=== PATIENT | female | born 1960 | race Caucasian/White ===

== ENCOUNTER 2022-04-21 09:12 | Outpatient (CLI) | payer MEDICAID, SELFPAY ==
[2022-04-21 12:44] LABS: Cholesterol* 266 mg/dL (90-199); HDL Cholesterol* 81 mg/dL (>=50); LDL Cholesterol Calculated 168 mg/dL (<100); Triglycerides* 87 mg/dL (40-149)
== END 2022-04-21 09:13 | disposition home or self-care (01) ==
PROVIDERS: PCP Family Medicine; Visit Provider Family Medicine
DX: E78.00 Pure hypercholesterolemia, unspecified (principal)
CPT/HCPCS: 80061

== ENCOUNTER 2022-07-16 08:40 | Outpatient (CLI) | payer MEDICAID, SELFPAY | END 2022-07-16 08:41 | disposition home or self-care (01) | LOC: OP CLINIC 08:42 | PROVIDERS: PCP Family Medicine; Visit Provider Internal Medicine | DX: Z12.11 Encounter for screening for malignant neoplasm of colon (principal); K57.30 Diverticulosis of large intestine without perforation or abscess without bleeding | CPT/HCPCS: 45378; J2250; J3010 ==

== ENCOUNTER 2022-09-17 10:02 | Outpatient (CLI) | payer MEDICAID, SELFPAY | END 2022-09-17 10:03 | disposition home or self-care (01) | PROVIDERS: PCP Family Medicine; Visit Provider Family Medicine | DX: Z00.00 Encounter for general adult medical examination without abnormal findings (principal); R53.83 Other fatigue; E78.00 Pure hypercholesterolemia, unspecified; D64.9 Anemia, unspecified | CPT/HCPCS: 80053; 80061; 82728 ==

== ENCOUNTER 2022-12-29 07:58 | Outpatient (CLI) | payer MEDICAID, SELFPAY | END 2022-12-29 07:59 | disposition home or self-care (01) | LOC: NFLDREF 12-30 00:19 | PROVIDERS: PCP Family Medicine; Referring Provider Family Medicine; Visit Provider Family Medicine | DX: D64.9 Anemia, unspecified (principal) | CPT/HCPCS: 82728 ==

== ENCOUNTER 2023-10-21 15:55 | Outpatient (CLI) | payer MEDICAID, SELFPAY | END 2023-10-21 15:56 | disposition home or self-care (01) | PROVIDERS: PCP Family Medicine; Visit Provider Family Medicine | DX: D64.9 Anemia, unspecified (principal); E78.00 Pure hypercholesterolemia, unspecified; R42 Dizziness and giddiness | CPT/HCPCS: 80061; 80076; 84443 ==

== ENCOUNTER 2023-11-02 07:46 | Outpatient (CLI) | payer MEDICAID, SELFPAY | END 2023-11-02 07:47 | disposition home or self-care (01) | LOC: RAD 07:46 | PROVIDERS: PCP Family Medicine; Visit Provider Family Medicine | DX: R42 Dizziness and giddiness (principal); R01.1 Cardiac murmur, unspecified | CPT/HCPCS: 93306 ==

== ENCOUNTER 2023-12-06 15:11 | Outpatient (CLI) | payer MEDICAID, SELFPAY ==
--- NOTE | 2023-12-06 15:20 | CRLHL7_ITS ---
For Patients: As a result of the Century Cures Act, medical imaging exams and procedure reports are released immediately into your electronic medical record. You may view this report before your referring provider. If you have questions, please contact your health care provider. BILATERAL SCREENING MAMMOGRAM WITH COMPUTER-AIDED DETECTION AND TOMOSYNTHESIS TECHNIQUE: CC and MLO views were obtained. These mammographic images have been obtained using full-field digital technique. These mammographic images were interpreted with the benefit of computer-aided detection. Breast Tomosynthesis was used in this interpretation. COMPARISON FILM: 12/02/22, 05/18/21, 04/21/20. FINDINGS: There are scattered areas of fibroglandular density IMPRESSION: There is no radiographic evidence for malignancy. ASSESSMENT: BI-RADS Category 1: Negative RECOMMENDATION: Routine screening mammogram in 1 year. A lay language report of this examination will be provided to the patient. Venkat Wild M.D. Diagnostic Radiologist [email or web address] NASIM/Dictated by: Venkat Wild MD @ 12/07/2023 8:43:00 AM (Electronically Signed)
== END 2023-12-06 15:12 | disposition home or self-care (01) ==
LOC: MAMMO 15:12
PROVIDERS: PCP Family Medicine; Visit Provider Family Medicine
DX: Z12.31 Encounter for screening mammogram for malignant neoplasm of breast (principal)
CPT/HCPCS: 77063; 77067

== ENCOUNTER 2024-10-01 08:33 | Outpatient (CLI) | payer MEDICAID, SELFPAY | END 2024-10-01 08:34 | disposition home or self-care (01) | LOC: NFLDREF 10-02 06:21 | PROVIDERS: PCP Family Medicine; Referring Provider Family Medicine; Visit Provider Family Medicine | DX: E78.00 Pure hypercholesterolemia, unspecified (principal) | CPT/HCPCS: 80053; 80061 ==

== ENCOUNTER 2024-10-15 09:00 | Outpatient (RCR) | payer MEDICAID, SELFPAY | END 2024-12-17 10:17 | disposition home or self-care (01) | PROVIDERS: PCP Family Medicine; Visit Provider Orthopaedic Surgery Sports Medicine | DX: M67.911 Unspecified disorder of synovium and tendon, right shoulder (principal); Z51.89 Encounter for other specified aftercare | CPT/HCPCS: 97110; 97140; 97161 ==

== ENCOUNTER 2025-02-19 08:45 | Outpatient (CLI) | payer MEDICAID, SELFPAY ==
--- NOTE | 2025-02-19 09:15 | CRLHL7_ITS ---
For Patients: As a result of the Century Cures Act, medical imaging exams and procedure reports are released immediately into your electronic medical record. You may view this report before your referring provider. If you have questions, please contact your health care provider. INDICATION: BILATERAL SCREENING MAMMOGRAM, ASYMPTOMATIC 64 Y/O FEMALE COMPARISON: 12/06/2023, 12/02/2022, 05/18/2021 TECHNIQUE: Digital mammogram in CC and MLO projections including computer-aided detection (CAD) and tomosynthesis. BREAST COMPOSITION: There are scattered areas of fibroglandular density. FINDINGS: No suspicious findings. ASSESSMENT: BI-RADS 1 Negative RECOMMENDATION: Annual screening mammogram. A lay language report of this examination will be provided to the patient. Dictated by: Venkat Wild MD @ 02/19/2025 10:41:47 (Electronically Signed)
== END 2025-02-19 08:46 | disposition home or self-care (01) ==
LOC: MAMMO 08:45
PROVIDERS: PCP Family Medicine; Visit Provider Family Medicine
DX: Z12.31 Encounter for screening mammogram for malignant neoplasm of breast (principal)
CPT/HCPCS: 77063; 77067

== ENCOUNTER 2025-04-01 15:30 | Outpatient (CLI) | payer MEDICAID, SELFPAY ==
--- NOTE | 2025-04-01 15:30 | CRLHL7_ITS ---
For Patients: As a result of the Cures Act, medical imaging exams and procedure reports are released immediately into your electronic medical record. You may view this report before your referring provider. If you have questions, please contact your health care provider. HISTORY: Left knee arthroplasty. TECHNIQUE: Three views of the left knee. COMPARISON: 12/14/2018. FINDINGS: Status post patellofemoral compartment arthroplasty. Components appropriately seated and intact. No acute periprosthetic fracture or hardware loosening. Mild osteophyte formation about the medial and lateral compartments. IMPRESSION: 1. Intact left patellofemoral compartment arthroplasty. Dictated by Oniel Govea MD @ 04/04/2025 4:53:16 AM (Electronically Signed)
== END 2025-04-01 15:31 | disposition home or self-care (01) ==
LOC: RAD 15:30
PROVIDERS: PCP Family Medicine; Visit Provider Orthopaedic Surgery Adult Reconstructive Orthopaedic Surgery
DX: Z96.652 Presence of left artificial knee joint (principal)
CPT/HCPCS: 73562